=== PATIENT | female | born 1995 | race Caucasian/White ===

== ENCOUNTER 2022-03-05 02:52 | Emergency (ER) | payer OTHER ==
[~2022-03-05] VITALS: Ht 165.1 cm; Wt 73.2 kg
[2022-03-05 03:57] LABS: HEMATOCRIT 41.2 % (37.0-47.0); HEMOGLOBIN 14.5 g/dl (12.5-16.0); MEAN CELL VOLUME 92 fl (80.0-100.0); MEAN CORPUSCULAR HEMOGLOBIN 32 pg (27-31); MEAN CORPUSCULAR HGB CONC 35 g/dl (33.0-37.0); MEAN PLATELET VOLUME 9.8 fl (7.4-10.4); PLATELET COUNT 226 K/mm3 (130-400); REDCELL DISTRIBUTION WIDTH-CV 11.2 % (11.5-14.5)
[2022-03-05 04:10] LABS: ALBUMIN 3.8 gm/dL (3.5-5.0); CALCIUM 9.5 mg/dL (8.4-10.2); CREATININE, serum 0.75 mg/dL (0.57-1.11); MAGNESIUM 1.8 mg/dL (1.6-2.6); PHOSPHOROUS 2.7 mg/dL (2.3-4.7)
[2022-03-05 04:12] LABS: POTASSIUM 2.9 mmol/L (3.5-4.5)
[2022-03-05 05:17] VITALS: BP 118/78; PULSE 96; TEMP 98
== END 2022-03-05 05:21 | disposition home or self-care (01) ==
LOC: COL.ER 02:52
PROVIDERS: Emergency Medicine
DX: R00.0 Tachycardia, unspecified (principal); E87.6 Hypokalemia
CPT/HCPCS: J7120